=== PATIENT | male | born 1960 | race American Indian/Alaskan Native ===

== ENCOUNTER 2018-01-28 17:04 | Emergency (ER) | payer MEDICAID ==
[~2018-01-28] VITALS: Ht 170.2 cm; Wt 70.0 kg
[2018-01-28] MEDS ORDERED: SULF1TAB49 PO (19:14)
[2018-01-28] MEDS ORDERED: CEPH500C5 PO (19:14)
[2018-01-28 19:32] VITALS: BP 120/80
== END 2018-01-28 19:34 | disposition home or self-care (01) ==
LOC: ER 17:05
DX: L03.115 Cellulitis of right lower limb (principal); Z79.899 Other long term (current) drug therapy
CPT/HCPCS: 99283

== ENCOUNTER 2018-05-03 05:58 | Emergency (ER) | payer MEDICAID ==
[~2018-05-03] VITALS: Ht 170.2 cm; Wt 79.5 kg
[~2018-05-03 05:58] MED LIST: CEPH500C5 PO
[2018-05-03] MEDS ORDERED: LIDOcaine 1.5% w/epinephrine 1:200,000 5ml ampul IJ ONE (06:10)
[2018-05-03 06:17] VITALS: BP 117/81
[2018-05-03] MEDS ORDERED: diph,pertuss (acell), tet (DTaP-PEDs)/PF 0.5ml syringe IMVAC ONE (06:30)
[2018-05-03] MEDS ORDERED: TETanus/Pertussis (Acell)/Diphther VAC/PF (Tdap-Adult) 0.5ml syringe IMVAC ONE (06:40)
[2018-05-03] MEDS ORDERED: ACET-2119 PO (15:50)
== END 2018-05-03 08:07 | disposition home or self-care (01) ==
LOC: ER 05:59
DX: S01.112A Laceration without foreign body of left eyelid and periocular area, initial encounter (principal); Z79.2 Long term (current) use of antibiotics; W22.8XXA Striking against or struck by other objects, initial encounter; Y93.89 Activity, other specified; Y92.89 Other specified places as the place of occurrence of the external cause; Y99.8 Other external cause status
CPT/HCPCS: 12011; 70450; 99284; A6449; J3490; 90715

== ENCOUNTER 2018-05-03 15:19 | Emergency (ER) | payer MEDICAID ==
[~2018-05-03] VITALS: Ht 584.7 cm; Wt 79.5 kg
[2018-05-03] MEDS ORDERED: acetaminophen 325mg tablet PO ONE (15:40)
[2018-05-03] MEDS ORDERED: ACET-2119 PO (15:50)
== END 2018-05-03 16:02 | disposition home or self-care (01) ==
LOC: ER 15:20
DX: R51 Headache (principal); Z79.2 Long term (current) use of antibiotics; Z79.899 Other long term (current) drug therapy
CPT/HCPCS: 99282

== ENCOUNTER 2018-05-21 16:51 | Emergency (ER) | payer MEDICAID ==
[~2018-05-21] VITALS: Ht 170.2 cm; Wt 81.8 kg
[~2018-05-21 16:51] MED LIST changes: +ACET-2119 PO
[2018-05-21 16:57] VITALS: BP 113/84
== END 2018-05-21 17:31 | disposition home or self-care (01) ==
LOC: ER 16:52
DX: S01.112D Laceration without foreign body of left eyelid and periocular area, subsequent encounter (principal); Z98.890 Other specified postprocedural states; W22.8XXD Striking against or struck by other objects, subsequent encounter
CPT/HCPCS: 99281